=== PATIENT | female | born 1935 | race Caucasian/White ===

== ENCOUNTER 2019-09-29 15:52 | Inpatient (IN) | payer MEDICARE ==
[2019-09-29] MEDS ORDERED: ASPIRIN 81 MG PO STA (16:02)
[2019-09-29 16:24] LABS: Basophils % (A) 0 %; Eosinophils # (A) 0.1 k/uL (0-0.7); Eosinophils % (A) 1 %; HCT 41.6 % (34.0-46.0); HGB 13.5 gm/dL (11.4-16.0); Lymphocytes # (A) 0.8 k/uL (1.0-4.8); Lymphocytes % (A) 10 %; MCHC 32.5 g/dL (31.0-37.0); MCV 92.3 fL (80.0-100.0); Mean Platelet Volume 6.5; Monocytes # (A) 0.3 k/uL (0-1.0); Monocytes % (A) 4 %; Neutrophils # (A) 6.7 k/uL (1.3-7.7); Neutrophils % (A) 84 %; Platelet Count 234 k/uL (150-450); RBC 4.51 m/uL (3.80-5.40); RDW 12.9 % (11.5-15.5)
[2019-09-29 16:30] LABS: Albumin 4.5 g/dL (3.5-5.0); Calcium 9.5 mg/dL (8.4-10.2); Magnesium 2.2 mg/dL (1.6-2.3); Potassium 3.9 mmol/L (3.5-5.1); Total Bilirubin 0.8 mg/dL (0.2-1.3); Total Protein 7.5 g/dL (6.3-8.2)
[2019-09-29 16:32] LABS: INR 0.9 (<1.2); Partial Thromboplastin Time 22.7 sec (22.0-30.0); Prothrombin Time 9.9 sec (9.0-12.0)
--- NOTE | 2019-09-29 17:16 | XR ---
EXAMINATION TYPE: XR chest 2V DATE OF EXAM: 09/29/2019 COMPARISON: 10/26/2012 HISTORY: Chest tightness TECHNIQUE: 2 views FINDINGS: There is no heart failure nor confluent pneumonic infiltrate. Costophrenic angles are clear . There are chest leads. There are no hilar masses. There is spurring in the thoracic spine. IMPRESSION: No active cardiopulmonary disease. No change.
--- NOTE | 2019-09-29 18:01 | ED ---
Chest Pain HPI - General Chief Complaint: Chest Pain Stated Complaint: Chest pain Time Seen by Provider: 09/29/19 15:55 Source: patient, family, EMS Mode of arrival: EMS Limitations: no limitations - History of Present Illness Initial Comments: The patient is an 84-year-old female with past history of coronary artery disease with one stent placements, hypertension who presents to the emergency department with reported indigestion, nausea and chest pain. The patient was eating lunch with her . She had sudden onset of epigastric abdominal raza n with nausea and belching. She thought it was secondary to eating potato soup and drinking coffee. She went to the bathroom where she had a normal bowel movement however she began having extreme chest pain. She went back where her was sitting and told him about it. They did call EMS. EMS did transport the patient to the hospital and in route they were concerned that they saw ST elevation on her 12-lead EKG. The patient does arrive markedly hypertensive. She states that the pain starts in the left side of her chest and radiates to her left arm. No reported vomiting. Does have a history of 1 previous cardiac stent in 2011. She did have a cath in 2018 and this was done through the. This is per her phy therapist is. She denies any recent stress testing. No ripping or tearing sensation to her back. Denies any associated shortness of breath. Denies any changes in her bowel or bladder habits. There are no other alleviating, Perceptin or modifying factors - Related Data Home Medications Medication Instructions Recorded Confirmed Aspirin 81 mg PO DAILY 09/29/19 09/29/19 Cyanocobalamin [Vitamin B-12 1,000 mcg SQ [id number] 09/29/19 09/29/19 Injection] Folic Acid 1 mg PO DAILY 09/29/19 09/29/19 Lisinopril 20 mg PO BID 09/29/19 09/29/19 Meclizine [Antivert] 12.5 mg PO BID PRN 09/29/19 09/29/19 Nitroglycerin Sl Tabs [Nitrostat] 0.4 mg SUBLINGUAL Q5M PRN 09/29/19 09/29/19 hydrALAZINE HCL 20 mg PO HS 09/29/19 09/29/19 hydrALAZINE HCL [Apresoline] 10 mg PO DAILY 09/29/19 09/29/19 Allergies Allergy/AdvReac Type Severity Reaction Status Date / Time ciprofloxacin [From Cipro] Allergy Unknown Verified 09/29/19 20:44 iodine Allergy Rapid Verified 09/29/19 20:44 Heart Rate Sulfa (Sulfonamide Allergy Unknown Verified 09/29/19 20:44 Antibiotics) Review of Systems ROS Statement: Those systems with pertinent positive or pertinent negative responses have been documented in the HPI. ROS Other: All systems not noted in ROS Statement are negative. EKG Findings - EKG Comments: EKG Findings:: EKG demonstrates normal sinus rhythm with a ventricular rate of 76. TX interval is 170. QRS E4. QTC of 468. Some baseline artifact. No ST elevation. Inverted T waves in V5. Q-wave in lead 3. Past Medical History Past Medical History: Hypertension Additional Past Medical History / Comment(s): cataracts, pernicious anemia, shingles, malignant hypertension Past Surgical History: Appendectomy, Cholecystectomy, Heart Catheterization With Stent, Hernia Repair, Orthopedic Surgery Past Psychological History: No Psychological Hx Reported Smoking Status: Never smoker Past Alcohol Use History: None Reported Past Drug Use History: None Reported General Exam Limitations: no limitations General appearance: alert, in no apparent distress Head exam: Present: atraumatic, normocephalic, normal inspection Eye exam: Present: normal appearance, PERRL, EOMI. Absent: scleral icterus, conjunctival injection, periorbital swelling ENT exam: Present: normal exam, mucous membranes moist Neck exam: Present: normal inspection. Absent: tenderness, meningismus, lymphadenopathy Respiratory exam: Present: normal lung sounds bilaterally. Absent: respiratory distress, wheezes, rales, rhonchi, stridor Cardiovascular Exam: Present: regular rate, normal rhythm, normal heart sounds. Absent: systolic murmur, diastolic murmur, rubs, gallop, clicks GI/Abdominal exam: Present: soft, normal bowel sounds. Absent: distended, tenderness, guarding, rebound, rigid Extremities exam: Present: normal inspection, full ROM, normal capillary refill. Absent: tenderness, pedal edema, joint swelling, calf tenderness Back exam: Present: normal inspection Neurological exam: Present: alert, oriented X3, CN II-XII intact Psychiatric exam: Present: normal affect, normal mood Skin exam: Present: warm, dry, intact, normal color. 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 A thorough history and physical exam was performed. We immediately completed a 12-lead EKG because of the reported ST elevation. There is no ST elevation in my opinion. I did recommend laboratory studies and a chest x-ray. Laboratory studies are markable for a glucose of 179. Patient does have an elevated AST, ALT and alk phos. The patient has had previous cholecystectomy. Chest x-ray demonstrates no active cardio primary disease. He did reevaluate the patient. She has had no recurrence of her pain and states she feels much improved at this time. I did discuss diagnosis, differential and treatment options. I did recommend hospital admission return the patient's troponins because of her previous cardiac history. I will have cardiology evaluate the patient. The patient did agree to this. I discussed case with Dr. Welch who accepted admission of the patient is currently awaiting a bed Disposition Clinical Impression: Chest pain, Nausea Disposition: ADMITTED IP TO THIS HOSP Condition: Stable Is patient prescribed a controlled substance at d/c from ED?: No Decision to Admit Reason: Admit from EC Decision Date: 09/29/19 Decision Time: 18:02
[2019-09-29] MEDS ORDERED: NALOXONE 0.4 MG/ML 1 ML VIAL IV PRN (18:02)
[2019-09-29] MEDS ORDERED: MECLIZINE 12.5 MG TAB PO PRN (18:58)
[2019-09-29] MEDS ORDERED: LISINOPRIL 20 MG TAB PO SCH (19:00)
--- NOTE | 2019-09-29 19:15 | P.HPIM ---
History of Present Illness H&P Date: 09/29/19 Chief Complaint: Chest pain 84-year-old female with past medical history of hypertension, CAD post stent, pernicious anemia, chronic abdominal pain history of appendectomy and gallbladder removal presents the ED for chest pain. Patient states that she was at dinner with her at [employer]. She had just finished her dinner when she felt sudden onset of pressure-like in stabbing abdominal pain. Patient states the pain was 15 out of 10. She was able to make it to the bathroom and have a small bowel movement which did not help her symptoms. Patient states leeanne t she belched which helped a little bit. She attempted to use Gas-X and Pepto- Bismol without any relief. Patient also experienced lightheadedness, nausea no vomiting along with shortness of breath and diaphoresis which prompted her to come to the ED. Patient denies any headaches, lower extremity edema, fever or chills, cough, palpitations, changes in urination or bowel habits. No changes in appetite or weight. She denies smoking cigarettes or any alcohol use. Patient reports a chronic history of epigastric pain that has been ongoing for many years. Patient associates the epigastric pain with build up of gas when she eats the wrong food. She does have a history of appendectomy and gal lbladder removal in the past. In the ED, her vital signs are stable except BP of 192/87. CBC was unremarkable. Coagulation panel was negative. CMP showed BUN 18, glucose 179, AST 148, ALT 135 and alkaline phosphatase 143. Troponin was less than 0.012, EKG showing normal sinus rhythm with T-wave inversions. Lipase was negative. Chest x-ray was negative. Patient is admitted for chest pain, rule out acute coronary syndrome and cardiology evaluation. She did have a cardiac cath at [facility] 2017 and stress test in 2016 results of which is unknown. Review of Systems Pertinent positives and negatives as discussed in HPI, a complete review of systems was performed and all other systems are negative. Past Medical History Past Medical History: Hypertension Additional Past Medical History / Comment(s): cataracts, pernicious anemia, shingles, malignant hypertension Past Surgical History: Appendectomy, Cholecystectomy, Heart Catheterization With Stent, Hernia Repair, Orthopedic Surgery Past Psychological History: No Psychological Hx Reported Smoking Status: Never smoker Past Alcohol Use History: None Reported Past Drug Use History: None Reported Medications and Allergies Allergies Allergy/AdvReac Type Severity Reaction Status Date / Time ciprofloxacin [From Cipro] Allergy Unknown Verified 09/29/19 16:13 iodine Allergy Rapid Verified 09/29/19 16:13 Heart Rate Sulfa (Sulfonamide Allergy Unknown Verified 09/29/19 16:13 Antibiotics) Physical Exam Vitals: Vital Signs Temp Pulse Pulse Resp BP Pulse Ox 09/29/19 16:09 18 09/29/19 16:07 72 09/29/19 15:54 97.9 F 77 18 192/87 97 Intake and Output 09/29/19 09/29/19 09/29/19 06:59 14:59 22:59 Other: Weight 65.771 kg General: [non toxic], [no distress], [appears at stated age] Derm: [warm], [dry] Head: [atraumatic], [normocephalic], [symmetric] Eyes: [EOMI], [no lid lag], [anicteric sclera] Mouth: [no lip lesion], [mucus membranes moist] Cardiovascular: [S1S2 reg], [no murmur], [positive posterior tibial pulse bilateral], Lungs: [CTA bilateral], [no rhonchi, no rales] , [no accessory muscle use] Abdominal: [soft], [ nontender to palpation], [no guarding], [no appreciable organomegaly] Ext: [no gross muscle atrophy], [no edema], [no contractures] Neuro: [ CN II-XI grossly intact], [no focal neuro deficits] Psych: [Alert], [oriented], [appropriate affect] Results CBC & Chem 7: 09/29/19 16:00 09/29/19 16:00 Labs: Abnormal Lab Results - Last 24 Hours (Table) 09/29/19 09/29/19 Range/Units 16:00 16:00 Lymphocytes # 0.8 L (1.0-4.8) k/uL BUN 18 H (7-17) mg/dL Glucose 179 H (74-99) mg/dL AST 148 H (14-36) U/L ALT 35 H (4-34) U/L Alkaline Phosphatase 143 H (38-126) U/L Assessment and Plan Assessment: Lightheadedness with nausea and diaphoresis Abdominal pain Transaminitis CAD with history of stent placement Hypertension Pernecious anemia Patient had symptoms of abdominal pain that she describes as chronic in nature and usually relieved by belching. Her lipase has been negative. She does have transaminitis for which we will obtain gallbladder ultrasound. With regard to her chest pain, plan is to rule out acute coronary syndrome. We will trend troponin/EKG and echocardiogram will be obtained. Patient will be placed on telemetry monitoring and cardiology will be consulted. We will start aspirin in the meantime. Her current blood pressure is 175/87. Her home medication of hydralazine, lisinopril will be resumed, her vitals were monitored and medications adjusted as necessary. Folic acid will be restarted for history of pernecious anemia. DVT prophylaxis: [SCD] Discussed with: [Patient and ] Anticipated discharge: [1-2 days] Anticipated discharge place: [Home] A total of [35] minutes was spent on the care of this complex patient more than 50% of the time was spent in counseling and care coordination. Patient states that she would like to be no code. This was discussed with the in the room. Patient would like Bryn to be decision maker if she can't make decisions for herself.
--- NOTE | 2019-09-29 19:57 | US ---
EXAMINATION TYPE: US gallbladder DATE OF EXAM: 09/29/2019 COMPARISON: NONE CLINICAL HISTORY: epigastric pain include liver please. Patient stated had stomach pain after eating soup today, then had chest pain radiating to back; gallbladder removed 1998 EXAM MEASUREMENTS: Liver Length: 13.8 cm Gallbladder Wall: surgically removed CBD: 0.8 cm Right Kidney: 11.2 x 5.8 x 3.9 cm Pancreas: hyperechoic, tail obscured by overlying bowel gas Liver: fatty as attenuated posteriorly Gallbladder: surgically removed Evidence for sonographic Finney's sign: no CBD: wnl for 8th decade and post cholecystectomy Right Kidney: thin cortex; lateral inferior cortical cyst seen =3.2 x 4.2 x 3.7cm IMPRESSION: No dilated ducts. No evidence of pancreatic mass. No focal liver defect.
[2019-09-29] MEDS ORDERED: hydrALAZINE HCL 10 MG TAB PO SCH (21:00)
[2019-09-30 04:16] LABS: Basophils % (A) 1 %; Eosinophils # (A) 0.1 k/uL (0-0.7); Eosinophils % (A) 1 %; HCT 39.2 % (34.0-46.0); HGB 12.9 gm/dL (11.4-16.0); Lymphocytes # (A) 0.6 k/uL (1.0-4.8); Lymphocytes % (A) 12 %; MCH 30.2 pg (25.0-35.0); MCHC 32.8 g/dL (31.0-37.0); Mean Platelet Volume 6.5; Monocytes # (A) 0.4 k/uL (0-1.0); Monocytes % (A) 7 %; Neutrophils # (A) 4.1 k/uL (1.3-7.7); Neutrophils % (A) 78 %; Platelet Count 213 k/uL (150-450); RBC 4.25 m/uL (3.80-5.40); WBC 5.3 k/uL (3.8-10.6)
[2019-09-30 04:35] LABS: Total Bilirubin 0.6 mg/dL (0.2-1.3); Total Protein 6.7 g/dL (6.3-8.2)
[2019-09-30] MEDS ORDERED: hydrALAZINE HCL 25 MG TAB PO STA (04:52)
[2019-09-30] MEDS: LISINOPRIL 20 MG TAB PO SCH ×2 (09:49→20:35)
[2019-09-30] MEDS: ASPIRIN 81 MG PO SCH (09:49)
[2019-09-30] MEDS: hydrALAZINE HCL 10 MG TAB PO SCH ×2 (09:49→20:35)
--- NOTE | 2019-09-30 12:52 | P.CRDCN ---
History of Present Illness History of present illness: HISTORY OF PRESENTING ILLNESS This is a pleasant 84-year-old female past medical history significant for coronary artery disease status post PCI of RCA in 2011, hypertension, asthma and arthritis. She follows in the office with Dr. River out of [place]. We have been asked to see in consultation for chest pain. She states yesterday she was eating at [employer] with her and some friends shortly after finishing her lunch she started developing significant amount of discomfort in her abdomen associated with bloating, nausea and frequent belching. She excused herself to the ladies room and attempted to use the restroom however was unable to have a bowel movement. Her abdominal discomfort continued to worsen. EMS was eventually called because she felt like she was having discomfort and pressure in her chest as well. Her symptoms persisted for a few hours while she was here and slowly started to subside on their own. She underwent cardiac catheterization in 2017 at [facility] that she states was normal. Exact details unavailable. DIAGNOSTICS EKG reveals sinus mechanism, left axis deviation, mild ST changes in the high lateral leads. Chest xray negative for acute cardiopulmonary process. Ultrasound of the gallbladder reveals no dilated ducts, no pancreatic mass and no focal liver defect. The bladder has been surgically removed. Laboratory reviewed, CBC unremarkable, sodium 139, potassium 4.0, creatinine 0.85, cardiac enzymes negative 3, AST 350, ALT 177 and alkaline phosphatase 194. Current cardiac medications include aspirin 81 mg daily, lisinopril 20 mg twice a day, hydralazine 10 mg in the morning and 20 mg at bedtime. REVIEW OF SYSTEMS At the time of my exam: CONSTITUTIONAL: Denies fever or chills. CARDIOVASCULAR: Denies chest pain, shortness of breath, orthopnea, PND or palpitations. RESPIRATORY: Denies cough. GASTROINTESTINAL: Denies abdominal pain, diarrhea, constipation, nausea or vomiting. MUSCULOSKELETAL: Denies myalgias. NEUROLOGIC: Denies numbness, tingling or weakness. ENDOCRINE: Denies fatigue, weight change, polydipsia or polyurina. GENITOURINARY: Denies burning, hematuria or urgency with micturation. HEMATOLOGIC: Denies history of anemia or bleeding. PHYSICAL EXAMINATION Blood pressure 135/71 heart rate 80 afebrile and maintaining oxygen saturation on room air. CONSTITUTIONAL: No apparent distress. HEENT: Head is normocephalic. Pupils are equal, round. Sclerae anicteric. Mucous membranes of the mouth are moist. No JVD. No carotid bruit. CHEST EXAMINATION: Lungs are clear to auscultation. No chest wall tenderness is noted on palpation or with deep breathing. HEART EXAMINATION: Regular rate and rhythm. S1, S2 heard. No murmurs, gallops or rub. ABDOMEN: Soft, nontender. Positive bowel sounds. EXTREMITIES: 2+ peripheral pulses, no lower extremity edema and no calf tenderness. NEUROLOGIC EXAMINATION: Patient is awake, alert and oriented x3. ASSESSMENT Chest pain, atypical. Transaminitis History of coronary artery disease status post PCI of the RCA 2011 Hypertension PLAN An acute coronary event has been ruled out. Pain is atypical to be related to angina. Ongoing medical management and evaluation of elevated liver enzymes. Stable from a cardiac perspective to follow-up with her primary director women upon discharge. Thank you kindly for this consultation. Nurse Practitioner note has been reviewed, I agree with a documented findings and plan of care. Patient was seen and examined. Past Medical History Past Medical History: Asthma, Hypertension Additional Past Medical History / Comment(s): cataracts, pernicious anemia, shingles, malignant hypertension, arthritis neck and tail bone, exercise induced asthma and hiatal hernia History of Any Multi-Drug Resistant Organisms: None Reported Past Surgical History: Appendectomy, Cholecystectomy, Heart Catheterization With Stent, Hysterectomy, Orthopedic Surgery Additional Past Surgical History / Comment(s): cataracts; basal cell carcinoma neck; right ankle repair with pins and víctor, ysterectomy, bladder tack and right ovary Date of Last Stent Placement:: 2016 Past Psychological History: No Psychological Hx Reported Smoking Status: Never smoker Past Alcohol Use History: None Reported Past Drug Use History: None Reported Medications and Allergies Home Medications Medication Instructions Recorded Confirmed Type Aspirin 81 mg PO DAILY 09/29/19 09/29/19 History Cyanocobalamin [Vitamin B-12 1,000 mcg SQ [id number] 09/29/19 09/29/19 History Injection] Folic Acid 1 mg PO DAILY 09/29/19 09/29/19 History Lisinopril 20 mg PO BID 09/29/19 09/29/19 History Meclizine [Antivert] 12.5 mg PO BID PRN 09/29/19 09/29/19 History Nitroglycerin Sl Tabs [Nitrostat] 0.4 mg SUBLINGUAL Q5M PRN 09/29/19 09/29/19 Hi story hydrALAZINE HCL 20 mg PO HS 09/29/19 09/29/19 History hydrALAZINE HCL [Apresoline] 10 mg PO DAILY 09/29/19 09/29/19 History Allergies Allergy/AdvReac Type Severity Reaction Status Date / Time ciprofloxacin [From Cipro] Allergy Unknown Verified 09/29/19 20:44 iodine Allergy Rapid Verified 09/29/19 20:44 Heart Rate Sulfa (Sulfonamide Allergy Unknown Verified 09/29/19 20:44 Antibiotics) Physical Exam Vitals: Vital Signs Temp Pulse Pulse Pulse Resp BP BP 09/30/19 07:10 98.2 F 80 18 135/71 09/30/19 04:00 97.9 F 68 18 195/78 09/29/19 23:37 98.2 F 66 17 174/78 09/29/19 19:57 98.3 F 79 188/74 09/29/19 18:44 98.9 F 77 16 175/87 09/29/19 16:09 18 09/29/19 16:07 72 09/29/19 15:54 97.9 F 77 18 192/87 Pulse Ox 09/30/19 07:10 94 L 09/30/19 04:00 96 09/29/19 23:37 98 09/29/19 19:57 93 L 09/29/19 18:44 97 09/29/19 16:09 09/29/19 16:07 09/29/19 15:54 97 Intake and Output 09/29/19 09/30/19 09/30/19 22:59 06:59 14:59 Other: # Voids 1 Weight 65.771 kg Results 09/30/19 04:00 09/30/19 04:00 Cardiac Enzymes 09/29/19 09/29/19 09/29/19 Range/Units 16:00 16:00 21:47 AST 148 H (14-36) U/L Troponin I <0.012 <0.012 (0.000-0.034) ng/mL 09/30/19 09/30/19 Range/Units 04:00 04:00 AST 350 H (14-36) U/L Troponin I <0.012 (0.000-0.034) ng/mL Coagulation 09/29/19 Range/Units 16:00 PT 9.9 (9.0-12.0) sec APTT 22.7 (22.0-30.0) sec CBC 09/29/19 09/30/19 Range/Units 16:00 04:00 WBC 8.0 5.3 (3.8-10.6) k/uL RBC 4.51 4.25 (3.80-5.40) m/uL Hgb 13.5 12.9 (11.4-16.0) gm/dL Hct 41.6 39.2 (34.0-46.0) % Plt Count 234 213 (150-450) k/uL Comprehensive Metabolic Panel 09/29/19 09/30/19 Range/Units 16:00 04:00 Sodium 138 139 (137-145) mmol/L Potassium 3.9 4.0 (3.5-5.1) mmol/L Chloride 104 106 (98-107) mmol/L Carbon Dioxide 24 26 (22-30) mmol/L BUN 18 H 14 (7-17) mg/dL Creatinine 0.83 0.85 (0.52-1.04) mg/dL Glucose 179 H 88 (74-99) mg/dL Calcium 9.5 9.0 (8.4-10.2) mg/dL AST 148 H 350 H (14-36) U/L ALT 35 H 177 H (4-34) U/L Alkaline Phosphatase 143 H 184 H (38-126) U/L Total Protein 7.5 6.7 (6.3-8.2) g/dL Albumin 4.5 4.0 (3.5-5.0) g/dL Current Medications Generic Name Dose Route Start Last Admin Trade Name Freq PRN Reason Stop Dose Admin Aspirin 81 mg 09/30/19 09:00 Aspirin PO DAILY WARNER Hydralazine HCl 20 mg 09/30/19 09:00 Apresoline PO BID WARNER Lisinopril 20 mg 09/30/19 09:00 Zestril PO BID WARNER Meclizine HCl 12.5 mg 09/29/19 18:58 Antivert PO BID PRN Vertigo Naloxone HCl 0.2 mg 09/29/19 18:02 Narcan IV Q2M PRN Opioid Reversal Intake and Output 09/29/19 09/30/1909/29/20 22:59 06:59 14:59 Other: # Voids 1 Weight 65.771 kg 09/30/19 04:00 09/30/19 04:00
--- NOTE | 2019-09-30 14:34 | P.PN ---
Subjective Progress Note Date: 09/30/19 Principal diagnosis: Abdominal pain Patient was seen and examined. No acute events overnight. Patient reports significant improvement in her abdominal pain since admission. Patient reports belching which is helping her abdominal pain. She denies any chest pain, shortness of breath or palpitations. No nausea or vomiting. No diaphoresis. Objective - Vital Signs Vital signs: Vital Signs Temp 98.1 F 09/30/19 11:35 Pulse 97 09/30/19 11:35 Resp 18 09/30/19 11:35 BP 109/63 09/30/19 11:35 Pulse Ox 95 09/30/19 11:35 Intake & Output 09/29/19 09/30/19 09/30/19 18:59 06:59 18:59 Intake Total 200 Balance 200 Weight 65.771 kg 65.771 kg Intake: Other 200 Other: # Voids 1 - Exam General: [non toxic], [no distress], [appears at stated age] Derm: [warm], [dry] Head: [atraumatic], [normocephalic], [symmetric] Eyes: [EOMI], [no lid lag], [anicteric sclera] Mouth: [no lip lesion], [mucus membranes moist] Cardiovascular: [S1S2 reg], [no murmur], [positive DP pulse bilateral], Lungs: [CTA bilateral], [no rhonchi, no rales] , [no accessory muscle use] Abdominal: [soft], [ nontender to palpation], [no guarding], [no appreciable organomegaly] Ext: [no gross muscle atrophy], [no edema], [no contractures] Neuro: [no focal neuro deficits] Psych: [Alert], [oriented], [appropriate affect] - Labs CBC & Chem 7: 09/30/19 04:00 09/30/19 04:00 Labs: Abnormal Lab Results - Last 24 Hours (Table) 09/29/19 09/29/19 09/30/19 Range/Units 16:00 16:00 04:00 Lymphocytes # 0.8 L 0.6 L (1.0-4.8) k/uL BUN 18 H (7-17) mg/dL Glucose 179 H (74-99) mg/dL AST 148 H (14-36) U/L ALT 35 H (4-34) U/L Alkaline Phosphatase 143 H (38-126) U/L 09/30/19 Range/Units 04:00 Lymphocytes # (1.0-4.8) k/uL BUN (7-17) mg/dL Glucose (74-99) mg/dL AST 350 H (14-36) U/L ALT 177 H (4-34) U/L Alkaline Phosphatase 184 H (38-126) U/L Assessment and Plan Assessment: Lightheadedness with nausea and diaphoresis, resolved Abdominal pain, improved Transaminitis CAD with history of stent placement Hypertension Pernecious anemia Her symptoms of lightheadedness, nausea and diaphoresis has resolved. Troponins were less than 0.0123 with EKG showing normal sinus rhythm with T-wave inversions. Acute coronary syndrome ruled out. Cardiology has been consulted and echocardiogram has been ordered. She will continue telemetry monitoring. Patient had symptoms of abdominal pain that she describes as chronic in nature and usually relieved by belching. Her lipase has been negative. Gallbladder ultrasound shows no dilated ducts. She does have transaminitis which is worsened this morning. She is not on any h epatotoxic medications. She does not drink alcohol. Gallbladder ultrasound shows no dilated ducts. Plans to repeat CMP tomorrow morning along with hepatitis panel and lipid panel. Continue aspirin for history of CAD. Her current blood pressure is 109/63. Her home medication of hydralazine, li sinopril was increased today by cardiology. Her vitals were monitored and medications adjusted as necessary. Folic acid will be restarted for history of pernecious anemia. [Acute coronary syndrome has been ruled out. Echocardiogram has been ordered and the read is pending. Patient with elevated liver enzymes, workup underway. She is pending clinical improvement. Likely DC tomorrow.]
[2019-09-30] MEDS: FOLIC ACID 1 MG TAB PO SCH (16:23)
--- NOTE | 2019-09-30 16:57 | ECHOF ---
Referral Reason: MEASUREMENTS -------- HEIGHT: 149.9 cm WEIGHT: 65.8 kg BP: 195/78 RVIDd: 3.0 cm (< 3.3) IVSd: 1.3 cm (0.6 - 1.1) LVIDd: 4.0 cm (3.9 - 5.3) LVPWd: 1.3 cm (0.6 - 1.1) IVSs: 1.9 cm LVIDs: 2.7 cm LVPWs: 1.7 cm LA Diam: 3.3 cm (2.7 - 3.8) LAESV Index (A-L): 22.10 ml/m Ao Diam: 3.1 cm (2.0 - 3.7) AV Cusp: 1.6 cm (1.5 - 2.6) MV EXCURSION: 7.484 mm (> 18.000) MV EF SLOPE: 34 mm/s (70 - 150) EPSS: 0.6 cm MV E Damian: 1.10 m/s MV DecT: 271 ms MV A Damian: 1.36 m/s MV E/A Ratio: 0.81 RAP: 5.00 mmHg RVSP: 42.15 mmHg TAPSE: 20.48 mm FINDINGS -------- Sinus rhythm. This was a technically adequate study. The left ventricular size is normal. There is mild concentric left ventricular hypertrophy. Overa ll left ventricular systolic function is normal with, an EF between 55 - 60 %. The right ventricle is normal in size. Normal LA size by volume 22+/-6 ml/m2. The right atrial size is normal. Lipomatous Hypertrophy of the atrial septum is present There is mild aortic valve sclerosis. Trace to mild aortic regurgitation. Moderate mitral annular calcification present. Mild mitral regurgitation is present. Mild tricuspid regurgitation present. There is mild pulmonary hypertension. The right ventricular systolic pressure, as measured by Doppler, is 42.15mmHg. Trace/mild (physiologic) pulmonic regurgitation. The aortic root size is normal. Normal inferior vena cava with normal inspiratory collapse consistent with estimated right atrial pre ssure of 5 mmHg. There is no pericardial effusion. CONCLUSIONS -------- 1. Sinus rhythm. 2. This was a technically adequate study. 3. The left ventricular size is normal. 4. There is mild concentric left ventricular hypertrophy. 5. Overall left ventricular systolic function is normal with, an EF between 55 - 60 %. 6. Normal LA size by volume 22+/-6 ml/m2. 7. There is mild aortic valve sclerosis. 8. Trace to mild aortic regurgitation. 9. Moderate mitral annular calcification present. 10. Mild mitral regurgitation is present. 11. Mild tricuspid regurgitation present. 12. There is mild pulmonary hypertension. 13. Trace/mild (physiologic) pulmonic regurgitation. 14. Normal inferior vena cava with normal inspiratory collapse consistent with estimated right atrial pressure of 5 mmHg. 15. There is no pericardial effusion. WARPING MACHINE OPERATOR: Irma Ferrera RDCS
[2019-10-01 04:18] LABS: Cholesterol 139 mg/dL (<200); HDL Cholesterol 38 mg/dL (40-60); LDL Cholesterol,Calculated 80 mg/dL (0-99); Triglycerides 105 mg/dL (<150)
[2019-10-01 06:49] VITALS: BP 119/71; PULSE 76; RESP 18; TEMP 99.4
[2019-10-01] MEDS: ASPIRIN 81 MG PO SCH (07:56)
[2019-10-01] MEDS: FOLIC ACID 1 MG TAB PO SCH (07:56)
[2019-10-01] MEDS: hydrALAZINE HCL 10 MG TAB PO SCH (07:56)
[2019-10-01] MEDS: LISINOPRIL 20 MG TAB PO SCH (07:56)
[2019-10-01 10:03] LABS: Calcium 8.9 mg/dL (8.4-10.2); Potassium 3.8 mmol/L (3.5-5.1); Total Bilirubin 0.7 mg/dL (0.2-1.3); Total Protein 6.6 g/dL (6.3-8.2)
--- NOTE | 2019-10-01 10:36 | P.DS ---
Providers Date of admission: 10/01/19 08:03 Expected date of discharge: 10/01/19 Attending physician: Fidelia Guaman DO Consults: 09/29/19 18:03 Consult Physician Urgent Consulting Provider: [facility] Consult Reason/Comments: acute chest pain, possible acs Do you want consulting provider notified?: Yes Primary care physician: [facility] Course: 84-year-old female with past medical history of hypertension, CAD post stent, pernicious anemia, chronic abdominal pain history of appendectomy and gallbladder removal presents the ED for chest pain. Patient states that she was at dinner with her at rest lobster. She had just finished her dinner when she felt sudden onset of pressure-like in stabbing abdominal pain. Patient states the pain was 15 out of 10. She was able to make it to the bathroom and have a small bowel movement which did not help her symptoms. Patient states that she belched which helped a little bit. She attempted to use Gas-X and Pepto-Bismol without any relief. Patient also experienced lightheadedness, nausea no vomiting along with shortness of breath and diaphoresis which prompted her to come to the ED. Patient denies any headaches, lower extremity edema, fever or chills, cough, palpitations, changes in urination or bowel habits. No changes in appetite or weight. She denies smoking cigarettes or any alcohol use. Patient reports a chronic history of epigastric pain that has been ongoing for many years. Patient associates the epigastric pain with build up of gas when she eats the wrong food. She does have a history of appendectomy and gallbladder removal in the past. In the ED, her vital signs are stable except BP of 192/87. CBC was unremarkable. Coagulation panel was negative. CMP showe d BUN 18, glucose 179, AST 148, ALT 135 and alkaline phosphatase 143. Troponin was less than 0.012, EKG showing normal sinus rhythm with T-wave inversions. Lipase was negative. Chest x-ray was negative. Patient is admitted for chest pain, rule out acute coronary syndrome and cardiology evaluation. She did have a cardiac cath at [facility] 2017 and stress test in 2016 results of which is unknown. Her symptoms of lightheadedness, nausea and diaphoresis had resolved when she came to the ED. Her symptoms could be related to vasovagal from the pain that she experienced in her abdomen. Troponins were less than 0.0123 with EKG showing normal sinus rhythm with T-wave inversions. Acute coronary syndrome ruled out. Cardiology has been consulted and echocardiogram was ordered. Echocardiogram showed EF 55-60% with mild concentric LVH. Patient had symptoms of abdominal pain that she describes as chronic in nature and usually relieved by belching. Her lipase has been negative. Gallbladder ultrasound shows no dilated ducts. She had no further symptoms during her hospitalization. Patient was noted to have a transaminitis with AST 148 ALT 35 alkaline phosphatase 143 on admission. Her liver enzymes trended up to AST 350, ALT 177 and alkaline phosphatase 184. Lipid panel was ordered which was within normal limits. Liver enzymes trended down to AST 90, ALT 98, alkaline phosphatase 134 at the time of discharge. Gallbladder ultrasound shows no dilated ducts. Hepatitis panel was pending at the time of this note. She was continue on aspirin for history of CAD. Her blood pressure at the time of discharge was 119/71. Her home medication of hydralazine, lisinopril was increased by cardiology. Folic acid will be restarted for history of pernecious anemia. Patient was seen and examined. No acute events overnight. Patient reports resolution of her symptoms. She denies any chest pain, shortness of breath or palpitations. No nausea or vomiting. No fever or chills. No abdominal pain. Wanting to go home today. Patient reports feeling feverish last night and had T-max of 100.4 Fahrenheit. She denies any cough. She denies any dysuria. She denies any diarrhea. General: [non toxic], [no distress], [appears at stated age] Derm: [warm], [dry] Head: [atraumatic], [normocephalic], [symmetric] Eyes: [EOMI], [no lid lag], [anicteric sclera] Mouth: [no lip lesion], [mucus membranes moist] Cardiovascular: [S1S2 reg], [no murmur], [positive DP pulse bilateral], Lungs: [CTA bilateral], [no rhonchi, no rales] , [no accessory muscle use] Abdominal: [soft], [ nontender to palpation], [no guarding], [no appreciable organomegaly] Ext: [no gross muscle atrophy], [no edema], [no contractures] Neuro: [no focal neuro deficits] Psych: [Alert], [oriented], [appropriate affect] Lightheadedness with nausea and diaphoresis, resolved Low-grade fever Abdominal pain, improved Transaminitis CAD with history of stent placement Hypertension Pernecious anemia Her presyncopal symptoms were likely related to vasovagal from intense abdominal pain that has resolved since hospitalization. Her abdominal pain has improved. Her liver enzymes are downtrending today. Patient will need to follow-up with her PCP for further workup of her transaminitis. She did have a low-grade fever overnight of 100.4 Fahrenheit. There appears to be no signs of infection at this time. Patient is hemodynamically stable and is requesting to go home today. She will be discharged with a follow-up with her PCP on Wednesday. Patient verbalized understanding of the plan. Pertinent Studies: Gallbladder ultrasound, echocardiogram Patient Condition at Discharge: Stable Plan - Discharge Summary New Discharge Prescriptions: Continue Lisinopril 20 mg PO BID hydrALAZINE HCL [Apresoline] 10 mg PO DAILY hydrALAZINE HCL 20 mg PO HS Aspirin 81 mg PO DAILY Folic Acid 1 mg PO DAILY Cyanocobalamin [Vitamin B-12 Injection] 1,000 mcg SQ [id number] Meclizine [Antivert] 12.5 mg PO BID PRN PRN Reason: DIZZINESS/NAUSEA Nitroglycerin Sl Tabs [Nitrostat] 0.4 mg SUBLINGUAL Q5M PRN PRN Reason: Chest Pain Discharge Medication List Aspirin 81 mg PO DAILY 09/29/19 [History] Cyanocobalamin [Vitamin B-12 Injection] 1,000 mcg SQ [id number] 09/29/19 [History] Folic Acid 1 mg PO DAILY 09/29/19 [History] Lisinopril 20 mg PO BID 09/29/19 [History] Meclizine [Antivert] 12.5 mg PO BID PRN 09/29/19 [History] Nitroglycerin Sl Tabs [Nitrostat] 0.4 mg SUBLINGUAL Q5M PRN 09/29/19 [History] hydrALAZINE HCL 20 mg PO HS 09/29/19 [History] hydrALAZINE HCL [Apresoline] 10 mg PO DAILY 09/29/19 [History] Follow up Appointment(s)/Referral(s): Vivek Green MD [STAFF PHYSICIAN] - 2 Weeks Rachel Deluca MD [Primary Care Provider] - 1-2 days Activity/Diet/Wound Care/Special Instructions: Diet: Low-salt cardiac Follow-up PCP within 2 days of discharge. Follow-up with cardiology within 1 week of discharge. Take all medications as advised. Come back to the ED or call 911 for worsening chest pain, shortness breath, palpitations, intense abdominal pain, dizziness or feelings of wanting to pass out. Discharge Disposition: HOME SELF-CARE
[2019-10-02 10:59] LABS: Hepatitis A Antibody IgM Non-Reactive (Non-Reactive); Hepatitis B Core IgM Non-Reactive (Non-Reactive); Hepatitis B Surface Antigen Non-Reactive (Non-Reactive); Hepatitis C IgG Antibody Non-Reactive (Non-Reactive)
== END 2019-10-01 11:45 | disposition home or self-care (01) | DRG 312 ==
LOC: EC 15:52 → 1SOBS 18:05 → OBSVTOIN 10-01 08:03
PROVIDERS: ADMIT Internal Medicine; ATTEND Internal Medicine
DX: R55 Syncope and collapse (principal); R10.9 Unspecified abdominal pain; G89.29 Other chronic pain; J45.990 Exercise induced bronchospasm; K44.9 Diaphragmatic hernia without obstruction or gangrene; R07.89 Other chest pain; R74.0 Nonspecific elevation of levels of transaminase and lactic acid dehydrogenase [LDH]; D51.0 Vitamin B12 deficiency anemia due to intrinsic factor deficiency; I10 Essential (primary) hypertension; I25.10 Atherosclerotic heart disease of native coronary artery without angina pectoris; R50.9 Fever, unspecified; R11.0 Nausea; Z79.82 Long term (current) use of aspirin; Z79.899 Other long term (current) drug therapy; M47.812 Spondylosis without myelopathy or radiculopathy, cervical region; Z85.828 Personal history of other malignant neoplasm of skin; Z95.5 Presence of coronary angioplasty implant and graft; Z90.710 Acquired absence of both cervix and uterus; Z90.6 Acquired absence of other parts of urinary tract; Z90.49 Acquired absence of other specified parts of digestive tract; Z98.42 Cataract extraction status, left eye; Z98.41 Cataract extraction status, right eye; Z96.1 Presence of intraocular lens; Z88.2 Allergy status to sulfonamides; Z88.1 Allergy status to other antibiotic agents; Z91.041 Radiographic dye allergy status
CPT/HCPCS: 36415; 71046; 76705; 80053; 80061; 80074; 83690; 83735; 84484; 85025; 85610; 85730; 93306; 99285